=== PATIENT | male | born 1935 | race Caucasian/White ===

== ENCOUNTER 2021-03-19 11:02 | Inpatient (IN) ==
[2021-03-19] MEDS ORDERED: NS 0.9% 1000 ml BAG 1,000 ML IV ONE (13:32)
[2021-03-19 14:04] LABS: ABS Lymphocytes 0.2 10^3/ul (1.0-4.8); ABS Monocytes 1.3 10^3/ul (0-0.8); ABS Neutrophils 10.3 10^3/ul (1.5-7.7); Hematocrit 36 % (42-52); Hemoglobin 11.4 g/dL (14.0-18.0); Mean Corpuscular HGB Conc 32 g/dL (31-36); Mean Corpuscular Hemoglobin 26 pg (27-31); Mean Corpuscular Volume 81 fL (80-94); Platelet Count 311 10^3/uL (150-450); Red Blood Count 4.41 10^6 /uL (4.18-5.48); Red Cell Distribution Width 18 % (10-15); White Blood Count 11.8 10^3/uL (3.5-10.8)
[2021-03-19 14:31] LABS: ALT 6 U/L (7-52); AST 33 U/L (13-39); Albumin 3.1 g/dL (3.2-5.2); Albumin/Globulin Ratio 0.9 (1-3); Alkaline Phosphatase 61 U/L (35-149); Anion Gap 9 mmol/L (2-11); Blood Urea Nitrogen 21 mg/dL (6-24); CO2 Carbon Dioxide 24 mmol/L (22-32); Calcium 8.4 mg/dL (8.6-10.3); Chloride 104 mmol/L (101-111); EGFR African American 90.3 (>60); EGFR Non-African American 74.6 (>60); Globulin 3.4 g/dL (2-4); Glucose 90 mg/dL (70-100); Potassium 3.6 mmol/L (3.5-5.0); Sodium 137 mmol/L (135-145); Total Protein 6.5 g/dL (6.4-8.9)
[2021-03-19 14:37] LABS: Troponin I 0.14 ng/mL (<0.03)
[2021-03-19 15:01] LABS: TSH Ultra Thyroid Stim Horm 3.95 mcIU/mL (0.34-5.60)
[2021-03-19] MEDS ORDERED: Iohexol 350 (CONTRAST) 500 ML MDV IV ONE (15:31)
[2021-03-19 17:01] LABS: Urine Appearance Cloudy; Urine Bacteria Absent (Absent); Urine Bilirubin Negative (Negative); Urine Blood 1+ (Negative); Urine Color Yellow; Urine Glucose Negative (Negative); Urine Ketones 1+ (Negative); Urine Nitrite Positive (Negative); Urine Protein Negative (Negative); Urine Red Blood Cell 2+(6-10/hpf) (Absent); Urine Squamous Epithelial Cell Present (Absent); Urine Urobilinogen Negative (Negative); Urine White Blood Cell Absent (Absent)
[2021-03-19 17:26] LABS: Troponin I 0.13 ng/mL (<0.03)
[2021-03-19] MEDS ORDERED: NS 0.9% 1000 ml BAG 1,000 ML IV SCH (20:30)
[2021-03-19 20:47] LABS: Troponin I 0.15 ng/mL (<0.03)
[2021-03-19 22:33] LABS: Influenza A Molecular Negative (Negative); Influenza B Molecular Negative (Negative)
[2021-03-19] MEDS: Enoxaparin 40 MG/0.4 ML SYR SUBCUT SCH (22:37)
[2021-03-20 00:55] LABS: Troponin I 0.18 ng/mL (<0.03)
[2021-03-20 03:59] LABS: ABS Eosinophils 0.1 10^3/ul (0-0.6); ABS Lymphocytes 0.2 10^3/ul (1.0-4.8); ABS Monocytes 1.4 10^3/ul (0-0.8); ABS Neutrophils 8.1 10^3/ul (1.5-7.7); Eosinophil % 0.6 %; Hematocrit 33 % (42-52); Hemoglobin 10.8 g/dL (14.0-18.0); Lymphocyte % 2.2 %; Mean Corpuscular HGB Conc 32 g/dL (31-36); Mean Corpuscular Hemoglobin 26 pg (27-31); Mean Corpuscular Volume 81 fL (80-94); Mean Platelet Volume 8.2 fL (7.4-10.4); Platelet Count 264 10^3/uL (150-450); Red Blood Count 4.11 10^6 /uL (4.18-5.48); Red Cell Distribution Width 18 % (10-15); White Blood Count 9.8 10^3/uL (3.5-10.8)
[2021-03-20 04:12] LABS: Albumin 2.6 g/dL (3.2-5.2); Albumin/Globulin Ratio 0.9 (1-3); C Reactive Protein 127.26 mg/L (<8.01); Calcium 7.7 mg/dL (8.6-10.3); EGFR African American 108.3 (>60); EGFR Non-African American 89.5 (>60); Potassium 3.6 mmol/L (3.5-5.0); Total Bilirubin 0.6 mg/dL (0.2-1.0); Total Protein 5.6 g/dL (6.4-8.9)
[2021-03-20 04:20] LABS: Troponin I 0.18 ng/mL (<0.03)
[2021-03-20] MEDS ORDERED: Iohexol 350 (CONTRAST) 500 ML MDV IV ONE (05:04)
[2021-03-20] MEDS ORDERED: NS 0.9% 1000 ml BAG 1,000 ML IV SCH (05:53)
[2021-03-20 06:32] LABS: Folate 9.39 ng/mL (5.90-24.80)
[2021-03-20 06:36] LABS: Vitamin D Total 25(OH) 14.6 ng/mL (20-50)
[2021-03-20] MEDS ORDERED: Cyanocobalamin INJ 1,000 MCG/ML VIAL 1 ML VIAL IM ONE (07:31)
[2021-03-20] MEDS: cefTRIAXone 1 gm/50 mL NS BAG 1 GM/50 ML BAG IVPB SCH (08:49)
[2021-03-20] MEDS: Cholecalciferol (VIT D3) 50,000 UNIT CAP (NF) PO SCH (08:56)
[2021-03-20] MEDS ORDERED: Cholecalciferol (VIT D3) 1,000 unit TAB PO SCH (09:00)
[2021-03-20] MEDS: Carbidopa/Levodop 25/100 MG TAB PO SCH ×2 (11:10→17:11)
[2021-03-20] MEDS: NS 0.9% 1000 ml BAG 1,000 ML IV SCH (16:11)
[2021-03-20] MEDS: Enoxaparin 40 MG/0.4 ML SYR SUBCUT SCH (20:13)
[2021-03-21] MEDS: NS 0.9% 1000 ml BAG 1,000 ML IV SCH ×3 (02:16→22:57)
[2021-03-21 06:45] LABS: ABS Eosinophils 0.1 10^3/ul (0-0.6); ABS Lymphocytes 0.3 10^3/ul (1.0-4.8); ABS Monocytes 0.9 10^3/ul (0-0.8); ABS Neutrophils 6.3 10^3/ul (1.5-7.7); Eosinophil % 1.5 %; Hematocrit 30 % (42-52); Hemoglobin 9.9 g/dL (14.0-18.0); Lymphocyte % 3.7 %; Mean Corpuscular HGB Conc 33 g/dL (31-36); Mean Corpuscular Hemoglobin 26 pg (27-31); Mean Corpuscular Volume 80 fL (80-94); Mean Platelet Volume 8.3 fL (7.4-10.4); Platelet Count 237 10^3/uL (150-450); Red Blood Count 3.75 10^6 /uL (4.18-5.48); Red Cell Distribution Width 18 % (10-15); White Blood Count 7.7 10^3/uL (3.5-10.8)
[2021-03-21 07:00] LABS: Albumin 2.5 g/dL (3.2-5.2); Albumin/Globulin Ratio 0.9 (1-3); Calcium 7.5 mg/dL (8.6-10.3); EGFR African American 105.3 (>60); EGFR Non-African American 87.1 (>60); Globulin 2.8 g/dL (2-4); Potassium 3.6 mmol/L (3.5-5.0); Total Bilirubin 0.4 mg/dL (0.2-1.0); Total Protein 5.3 g/dL (6.4-8.9)
[2021-03-21] MEDS: cefTRIAXone 1 gm/50 mL NS BAG 1 GM/50 ML BAG IVPB SCH (08:02)
[2021-03-21] MEDS: Carbidopa/Levodop 25/100 MG TAB PO SCH ×3 (08:02→17:14)
[2021-03-21] MEDS: Enoxaparin 40 MG/0.4 ML SYR SUBCUT SCH (19:47)
[2021-03-22] MEDS: cefTRIAXone 1 gm/50 mL NS BAG 1 GM/50 ML BAG IVPB SCH (07:40)
[2021-03-22] MEDS: Carbidopa/Levodop 25/100 MG TAB PO SCH ×3 (07:40→16:57)
[2021-03-22] MEDS: NS 0.9% 1000 ml BAG 1,000 ML IV SCH (10:33)
[2021-03-22] MEDS: Enoxaparin 40 MG/0.4 ML SYR SUBCUT SCH (20:32)
[2021-03-22] MEDS: Magnesium Hydroxide LIQ 30 ML UDC PO PRN (20:32)
[2021-03-23 06:05] LABS: ABS Lymphocytes 0.3 10^3/ul (1.0-4.8); ABS Monocytes 1.3 10^3/ul (0-0.8); ABS Neutrophils 9.2 10^3/ul (1.5-7.7); Eosinophil % 0.3 %; Hematocrit 31 % (42-52); Hemoglobin 9.9 g/dL (14.0-18.0); Lymphocyte % 2.4 %; Mean Corpuscular HGB Conc 32 g/dL (31-36); Mean Corpuscular Hemoglobin 26 pg (27-31); Mean Corpuscular Volume 81 fL (80-94); Mean Platelet Volume 8.1 fL (7.4-10.4); Platelet Count 277 10^3/uL (150-450); Red Blood Count 3.84 10^6 /uL (4.18-5.48); Red Cell Distribution Width 18 % (10-15); White Blood Count 10.8 10^3/uL (3.5-10.8)
[2021-03-23 06:22] LABS: Albumin 2.6 g/dL (3.2-5.2); Albumin/Globulin Ratio 0.9 (1-3); Calcium 8.1 mg/dL (8.6-10.3); EGFR African American 106.8 (>60); EGFR Non-African American 88.3 (>60); Magnesium 2.1 mg/dL (1.9-2.7); Potassium 3.8 mmol/L (3.5-5.0); Total Bilirubin 0.3 mg/dL (0.2-1.0); Total Protein 5.6 g/dL (6.4-8.9)
[2021-03-23] MEDS ORDERED: Furosemide 20 mg/2 ml IV VIAL IV SLOW PU ONE (08:41)
[2021-03-23] MEDS: Carbidopa/Levodop 25/100 MG TAB PO SCH ×3 (08:47→17:37)
[2021-03-23] MEDS: cefTRIAXone 1 gm/50 mL NS BAG 1 GM/50 ML BAG IVPB SCH (08:47)
[2021-03-23] MEDS ORDERED: Furosemide 20 mg/2 ml IV VIAL ONE (08:57)
[2021-03-23] MEDS: Enoxaparin 40 MG/0.4 ML SYR SUBCUT SCH (22:08)
[2021-03-24] MEDS ORDERED: Furosemide 20 mg/2 ml IV VIAL IV SLOW PU ONE ×2 (07:12→08:34)
[2021-03-24] MEDS: Carbidopa/Levodop 25/100 MG TAB PO SCH ×3 (07:26→16:37)
[2021-03-24] MEDS: cefTRIAXone 1 gm/50 mL NS BAG 1 GM/50 ML BAG IVPB SCH (07:28)
[2021-03-24 09:06] LABS: ABS Basophils 0.1 10^3/ul (0-0.2); ABS Eosinophils 0.1 10^3/ul (0-0.6); ABS Lymphocytes 0.3 10^3/ul (1.0-4.8); ABS Monocytes 1.3 10^3/ul (0-0.8); ABS Neutrophils 5.9 10^3/ul (1.5-7.7); Eosinophil % 1.8 %; Hematocrit 35 % (42-52); Hemoglobin 11.4 g/dL (14.0-18.0); Lymphocyte % 4.5 %; Mean Corpuscular HGB Conc 33 g/dL (31-36); Mean Corpuscular Hemoglobin 26 pg (27-31); Mean Corpuscular Volume 79 fL (80-94); Mean Platelet Volume 8.1 fL (7.4-10.4); Platelet Count 314 10^3/uL (150-450); Red Blood Count 4.43 10^6 /uL (4.18-5.48); Red Cell Distribution Width 18 % (10-15); White Blood Count 7.8 10^3/uL (3.5-10.8)
[2021-03-24 09:30] LABS: Calcium 8.5 mg/dL (8.6-10.3); EGFR African American 98.5 (>60); EGFR Non-African American 81.4 (>60); Magnesium 1.9 mg/dL (1.9-2.7); Potassium 3.6 mmol/L (3.5-5.0)
[2021-03-24] MEDS: Enoxaparin 40 MG/0.4 ML SYR SUBCUT SCH (19:39)
[2021-03-25] MEDS: Carbidopa/Levodop 25/100 MG TAB PO SCH ×3 (07:29→16:43)
[2021-03-25] MEDS: Enoxaparin 40 MG/0.4 ML SYR SUBCUT SCH (20:11)
[2021-03-26 00:17] LABS: Albumin 1.9 g/dL (3.4-4.7); Albumin/Globulin Ratio 0.66; Gamma Globulin 1.1 g/dL (0.6-1.6); Total Protein(PEP) 4.8 g/dL (6.3 - 7.9)
[2021-03-26] MEDS: Carbidopa/Levodop 25/100 MG TAB PO SCH ×4 (08:49→18:34)
[2021-03-26] MEDS: Enoxaparin 40 MG/0.4 ML SYR SUBCUT SCH (20:42)
[2021-03-26] MEDS: Magnesium Hydroxide LIQ 30 ML UDC PO PRN (20:43)
[2021-03-27] MEDS: Carbidopa/Levodop 25/100 MG TAB PO SCH ×3 (08:46→16:10)
[2021-03-27] MEDS: Cholecalciferol (VIT D3) 50,000 UNIT CAP (NF) PO SCH (08:48)
[2021-03-27 11:12] LABS: Flag, M-protein Isotype Positive (Negative)
[2021-03-27] MEDS: Enoxaparin 40 MG/0.4 ML SYR SUBCUT SCH (20:10)
[2021-03-27 22:51] LABS: Calcium 8.1 mg/dL (8.6-10.3); EGFR African American 121.9 (>60); EGFR Non-African American 100.8 (>60); Magnesium 2.1 mg/dL (1.9-2.7)
[2021-03-28 08:51] LABS: % Iron Saturation 6 % (15-55); Iron < 20 ug/dL (50-212); Total Iron Binding Capacity 335 mcg/dL (250-450); Transferrin 239 mg/dL (203-362); Unsaturated Iron Binding < 320 ug/dL
[2021-03-28 09:11] LABS: Ferritin 23.4 ng/mL (24-336)
[2021-03-28] MEDS: Carbidopa/Levodop 25/100 MG TAB PO SCH ×3 (09:16→17:58)
[2021-03-28 10:24] LABS: PSA Screening Total < 0.008 ng/mL (0-4.000)
[2021-03-28] MEDS ORDERED: Iron Sucrose 200 MG in NS 0.9% 100 ml BAG 100 ML IVPB ONE (17:22)
[2021-03-28] MEDS: Enoxaparin 40 MG/0.4 ML SYR SUBCUT SCH (20:34)
[2021-03-29] MEDS: Carbidopa/Levodop 25/100 MG TAB PO SCH (10:15)
[2021-03-29 14:09] VITALS: BP 135/61
[2021-03-30 11:41] LABS: Kappa Free Light Chain 3.41 mg/dL; Lambda Free Light Chain, S 2.79 mg/dL
== END 2021-03-29 13:30 | disposition home health service (06) | DRG 872 ==
LOC: ED 11:02 → MEDTELE 19:56 → SUATTDRO 19:56 → MEDTELE 21:55
PROVIDERS: ADMIT Student in an Organized Health Care Education/Training Program; ATTEND Hospitalist

== ENCOUNTER 2022-03-03 15:24 | Inpatient (IN) ==
[2022-03-03 17:56] LABS: ABS Lymphocytes 0.4 10^3/ul (1.0-4.8); ABS Neutrophils 11.8 10^3/ul (1.5-7.7); Eosinophil % 0.3 %; Hematocrit 47 % (42-52); Hemoglobin 15.2 g/dL (14.0-18.0); Lymphocyte % 2.8 %; Mean Corpuscular HGB Conc 33 g/dL (31-36); Mean Corpuscular Hemoglobin 30 pg (27-31); Mean Corpuscular Volume 91 fL (80-94); Mean Platelet Volume 8.7 fL (7.4-10.4); Nucleated Red Blood Cells % 0.1; Platelet Count 178 10^3/uL (150-450); Red Blood Count 5.13 10^6 /uL (4.18-5.48); Red Cell Distribution Width 16 % (10-15); White Blood Count 13.2 10^3/uL (3.5-10.8)
[2022-03-03 18:08] LABS: Activated Partial Thrombo Time 34.2 seconds (26.0-38.0); INR 1.29 (0.89-1.11)
[2022-03-03 18:35] LABS: Albumin 4.6 g/dL (3.2-5.2); Albumin/Globulin Ratio 1.8 (1-3); Calcium 9.9 mg/dL (8.6-10.3); Globulin 2.6 g/dL (2-4); Potassium 4.3 mmol/L (3.5-5.0); Total Bilirubin 1.3 mg/dL (0.2-1.0); Total Protein 7.2 g/dL (6.4-8.9); eGFR CKD-EPI 65.8 (>60)
[2022-03-03 19:36] LABS: High Sensitivity Troponin 1 Hr 51 pg/mL (<20)
[2022-03-03] MEDS ORDERED: Lactated Ringers 1000 ml BAG 1,000 ML IV SCH (21:00)
[2022-03-03] MEDS: Carbidopa/Levodop 25/100 MG TAB PO SCH (22:09)
[2022-03-03] MEDS ORDERED: Morphine 2 MG/ML SYRINGE IV PRN (22:44)
[2022-03-04 05:55] LABS: ABS Lymphocytes 0.3 10^3/ul (1.0-4.8); ABS Neutrophils 8.3 10^3/ul (1.5-7.7); Eosinophil % 0.1 %; Hematocrit 39 % (42-52); Hemoglobin 13.3 g/dL (14.0-18.0); Lymphocyte % 2.8 %; Mean Corpuscular HGB Conc 34 g/dL (31-36); Mean Corpuscular Hemoglobin 31 pg (27-31); Mean Corpuscular Volume 90 fL (80-94); Mean Platelet Volume 8.6 fL (7.4-10.4); Platelet Count 163 10^3/uL (150-450); Red Blood Count 4.36 10^6 /uL (4.18-5.48); Red Cell Distribution Width 16 % (10-15); White Blood Count 9.7 10^3/uL (3.5-10.8)
[2022-03-04 06:36] LABS: Blood Urea Nitrogen 17 mg/dL (6-24); CO2 Carbon Dioxide 20 mmol/L (22-32); Glucose 67 mg/dL (70-100); Sodium 142 mmol/L (135-145); eGFR CKD-EPI 95.6 (>60)
[2022-03-04 07:00] LABS: Calcium 6.2 mg/dL (8.6-10.3)
[2022-03-04 07:02] LABS: Chloride 112 mmol/L (101-111)
[2022-03-04 07:03] LABS: Anion Gap 10 mmol/L (2-11)
[2022-03-04] MEDS: Senna TAB 8.6 mg TAB PO SCH ×3 (09:42→22:31)
[2022-03-04] MEDS: Carbidopa/Levodop 25/100 MG TAB PO SCH ×3 (09:42→22:28)
[2022-03-05] MEDS: Lactated Ringers 1000 ml BAG 1,000 ML IV SCH ×2 (05:31→21:34)
[2022-03-05] MEDS ORDERED: Buffered Lidocaine 1% SYRIN 1 ml INTRADERM ONE (06:00)
[2022-03-05 06:48] LABS: INR 1.11 (0.89-1.11)
[2022-03-05 06:51] LABS: ABS Lymphocytes 0.2 10^3/ul (1.0-4.8); ABS Monocytes 1.3 10^3/ul (0-0.8); ABS Neutrophils 9.1 10^3/ul (1.5-7.7); Eosinophil % 0.2 %; Hematocrit 42 % (42-52); Hemoglobin 14.2 g/dL (14.0-18.0); Lymphocyte % 1.9 %; Mean Corpuscular HGB Conc 34 g/dL (31-36); Mean Corpuscular Hemoglobin 31 pg (27-31); Mean Corpuscular Volume 90 fL (80-94); Mean Platelet Volume 8.6 fL (7.4-10.4); Platelet Count 156 10^3/uL (150-450); Red Blood Count 4.66 10^6 /uL (4.18-5.48); Red Cell Distribution Width 15 % (10-15); White Blood Count 10.7 10^3/uL (3.5-10.8)
[2022-03-05 08:08] LABS: Calcium 8.9 mg/dL (8.6-10.3); Magnesium 1.8 mg/dL (1.9-2.7); eGFR CKD-EPI 80.5 (>60)
[2022-03-05] MEDS: Carbidopa/Levodop 25/100 MG TAB PO SCH ×3 (08:09→21:35)
[2022-03-05] MEDS: Senna TAB 8.6 mg TAB PO SCH ×2 (08:09→21:35)
[2022-03-05] MEDS ORDERED: Magnesium Sulfate IV 3 GM in NS 0.9% 100 ml BAG 100 ML IVPB ONE (08:50)
[2022-03-05] MEDS ORDERED: Propofol 10 MG/ML 20 ML BTL ONE (11:26)
[2022-03-05] MEDS ORDERED: Lidocaine 2% PF 5 ML VIAL ONE (11:26)
[2022-03-05] MEDS ORDERED: fentaNYL 100 mcg/2 ml 50 MCG/ML VIAL ONE (11:26)
[2022-03-05] MEDS ORDERED: Rocuronium 50 mg VIAL 10 mg/ml 5 ml VIAL (50 mg) ONE (11:26)
[2022-03-05] MEDS ORDERED: Phenylephrine IV 10 MG/ML 1 ml VIAL ONE (11:30)
[2022-03-05] MEDS ORDERED: Bupivacaine 0.5% SDV PF 30ML VIAL ONE (13:36)
[2022-03-05] MEDS ORDERED: Naloxone 0.4 mg VIAL 0.4 mg/ml 1 ml VIAL IV PRN (13:42)
[2022-03-05] MEDS ORDERED: Ondansetron 4 mg VIAL 2 MG/ML 2 ml VIAL IV PRN (13:42)
[2022-03-05] MEDS ORDERED: fentaNYL 100 mcg/2 ml 50 MCG/ML VIAL IV PRN (13:42)
[2022-03-05] MEDS ORDERED: ceFAZolin 1 GM ADVAN 1 GM ADDV.VIAL IVPB ONE (13:58)
[2022-03-05] MEDS ORDERED: Acetaminophen IV 1 GM/100ML 1,000 MG/100 ML BAG IV ONE (14:29)
[2022-03-05] MEDS ORDERED: Ondansetron 4 mg VIAL 2 MG/ML 2 ml VIAL ONE (14:40)
[2022-03-05] MEDS ORDERED: Dexamethasone IV 4 MG/ML VIAL 1 ml VIAL ONE (14:40)
[2022-03-05] MEDS ORDERED: Magnesium Sulfate IV 0.5 GM/ML 2 ml VIAL (1 gm) ONE (14:42)
[2022-03-05] MEDS: ceFAZolin 1 GM X 3 DOSES POST-OP Q8H (AddVan) IVPB SCH (21:36)
[2022-03-06 05:43] LABS: Hematocrit 43 % (42-52); Hemoglobin 13.9 g/dL (14.0-18.0); Mean Corpuscular HGB Conc 33 g/dL (31-36); Mean Corpuscular Hemoglobin 30 pg (27-31); Mean Corpuscular Volume 91 fL (80-94); Mean Platelet Volume 8.8 fL (7.4-10.4); Platelet Count 150 10^3/uL (150-450); Red Blood Count 4.71 10^6 /uL (4.18-5.48); Red Cell Distribution Width 16 % (10-15); White Blood Count 12.1 10^3/uL (3.5-10.8)
[2022-03-06] MEDS: ceFAZolin 1 GM X 3 DOSES POST-OP Q8H (AddVan) IVPB SCH ×2 (06:04→13:50)
[2022-03-06 06:31] LABS: Calcium 8.4 mg/dL (8.6-10.3); Magnesium 2.3 mg/dL (1.9-2.7); Potassium 4.5 mmol/L (3.5-5.0)
[2022-03-06 07:06] LABS: ABS Lymphocytes 0.2 10^3/ul (1.0-4.8); ABS Monocytes 1.8 10^3/ul (0-0.8); ABS Neutrophils 10.1 10^3/ul (1.5-7.7); Eosinophil % 0.1 %; Lymphocyte % 1.7 %; Nucleated Red Blood Cells % 0.1
[2022-03-06] MEDS ORDERED: Enoxaparin 40 MG/0.4 ML SYR SUBCUT SCH (09:00)
[2022-03-06] MEDS: Senna TAB 8.6 mg TAB PO SCH ×2 (09:40→21:10)
[2022-03-06] MEDS: Carbidopa/Levodop 25/100 MG TAB PO SCH ×3 (09:41→21:09)
[2022-03-07 05:19] LABS: Hematocrit 37 % (42-52); Hemoglobin 12.2 g/dL (14.0-18.0); Mean Corpuscular HGB Conc 33 g/dL (31-36); Mean Corpuscular Hemoglobin 30 pg (27-31); Mean Corpuscular Volume 91 fL (80-94); Mean Platelet Volume 8.7 fL (7.4-10.4); Platelet Count 141 10^3/uL (150-450); Red Blood Count 4.03 10^6 /uL (4.18-5.48); Red Cell Distribution Width 16 % (10-15); White Blood Count 10.1 10^3/uL (3.5-10.8)
[2022-03-07 05:53] LABS: Calcium 7.8 mg/dL (8.6-10.3); Magnesium 2.1 mg/dL (1.9-2.7); eGFR CKD-EPI 85.2 (>60)
[2022-03-07] MEDS: Senna TAB 8.6 mg TAB PO SCH ×2 (08:37→20:44)
[2022-03-07] MEDS: Carbidopa/Levodop 25/100 MG TAB PO SCH ×3 (08:37→20:44)
[2022-03-07] MEDS: Polyethylene Glycol 3350 17 GM PACKET PO PRN (20:44)
[2022-03-08 05:14] LABS: Hematocrit 36 % (42-52); Hemoglobin 11.9 g/dL (14.0-18.0); Mean Corpuscular HGB Conc 33 g/dL (31-36); Mean Corpuscular Hemoglobin 30 pg (27-31); Mean Corpuscular Volume 90 fL (80-94); Mean Platelet Volume 8.4 fL (7.4-10.4); Platelet Count 159 10^3/uL (150-450); Red Blood Count 3.95 10^6 /uL (4.18-5.48); Red Cell Distribution Width 16 % (10-15); White Blood Count 7.9 10^3/uL (3.5-10.8)
[2022-03-08 05:57] LABS: Calcium 7.8 mg/dL (8.6-10.3); Potassium 3.7 mmol/L (3.5-5.0)
[2022-03-08 06:03] LABS: eGFR CKD-EPI 84.9 (>60)
[2022-03-08 08:40] LABS: Albumin 2.9 g/dL (3.2-5.2); Albumin/Globulin Ratio 1.4 (1-3); Globulin 2.1 g/dL (2-4); Total Bilirubin 0.9 mg/dL (0.2-1.0)
[2022-03-08] MEDS: Senna TAB 8.6 mg TAB PO SCH ×2 (11:37→22:09)
[2022-03-08] MEDS: Carbidopa/Levodop 25/100 MG TAB PO SCH ×3 (11:37→22:09)
[2022-03-08] MEDS: Polyethylene Glycol 3350 17 GM PACKET PO PRN (11:38)
[2022-03-09] MEDS: Carbidopa/Levodop 25/100 MG TAB PO SCH ×2 (10:32→14:42)
[2022-03-09] MEDS: Senna TAB 8.6 mg TAB PO SCH ×2 (10:32→23:59)
[2022-03-09] MEDS ORDERED: KCL 10 MEQ/50 ML IVPREMIX 10 MEQ/50 ML BAG IV SCH (12:00)
[2022-03-09 13:00] LABS: Calcium 8.3 mg/dL (8.6-10.3); Magnesium 2.1 mg/dL (1.9-2.7); eGFR CKD-EPI 88.1 (>60)
[2022-03-10] MEDS: Carbidopa/Levodop 25/100 MG TAB PO SCH ×4 (09:38→22:13)
[2022-03-10] MEDS: Senna TAB 8.6 mg TAB PO SCH ×2 (09:40→22:15)
[2022-03-11] MEDS: Carbidopa/Levodop 25/100 MG TAB PO SCH (10:33)
[2022-03-11] MEDS: Senna TAB 8.6 mg TAB PO SCH (10:33)
[2022-03-11 11:46] VITALS: BP 122/68
[2022-03-11 12:10] LABS: Rapid COVID-19 Molecular Undetected (Undetected)
== END 2022-03-11 13:15 | DRG 522 ==
LOC: ED 15:24 → MERGE 20:51 → EDHOLD 20:51 → SUATTDRO 20:51 → EDHOLD 03-04 09:39 → SSU 03-04 10:10
PROVIDERS: ADMIT Hospitalist; ATTEND Student in an Organized Health Care Education/Training Program

== ENCOUNTER 2022-08-03 15:09 | Inpatient (IN) ==
[2022-08-03] MEDS ORDERED: NS 0.9% 1000 ml BAG 2,000 ML IV ONE (18:23)
[2022-08-03] MEDS ORDERED: Morphine 4 MG/ML VIAL (1 ml) IV ONE (18:24)
[2022-08-03 19:06] LABS: ABS Lymphocytes 0.3 10^3/ul (1.0-4.8); ABS Monocytes 1.1 10^3/ul (0-0.8); ABS Neutrophils 8.5 10^3/ul (1.5-7.7); Hematocrit 47 % (42-52); Hemoglobin 15.4 g/dL (14.0-18.0); Lymphocyte % 2.9 %; Mean Corpuscular HGB Conc 33 g/dL (31-36); Mean Corpuscular Hemoglobin 28 pg (27-31); Mean Corpuscular Volume 85 fL (80-94); Nucleated Red Blood Cells % 0.1; Platelet Count 235 10^3/uL (150-450); Red Blood Count 5.52 10^6 /uL (4.18-5.48); Red Cell Distribution Width 17 % (10-15); White Blood Count 9.9 10^3/uL (3.5-10.8)
[2022-08-03 19:59] LABS: Albumin 3.7 g/dL (3.2-5.2); Albumin/Globulin Ratio 1.2 (1-3); C Reactive Protein 112.68 mg/L (<8.01); Calcium 8.8 mg/dL (8.6-10.3); Creatinine, Serum 1.28 mg/dL (0.67-1.17); Globulin 3.2 g/dL (2-4); Magnesium 2.3 mg/dL (1.9-2.7); Potassium 4.8 mmol/L (3.5-5.0); Total Protein 6.9 g/dL (6.4-8.9); eGFR CKD-EPI 54.5 (>60)
[2022-08-03 20:30] LABS: High Sensitivity Troponin 1 Hr 237 pg/mL (<20)
[2022-08-04] MEDS ORDERED: Morphine 4 MG/ML VIAL (1 ml) IV ONE (01:30)
[2022-08-04] MEDS ORDERED: NS 0.9% 1000 ml BAG 1,000 ML IV ONE ×2 (01:32→05:30)
[2022-08-04] MEDS ORDERED: LORazepam 2 mg VIAL 1 ml ONE (02:01)
[2022-08-04] MEDS ORDERED: Lorazepam PYXIS KEY PRN (02:15)
[2022-08-04] MEDS ORDERED: LORazepam 2 mg VIAL 1 ml IV PUSH ONE (02:15)
[2022-08-04] MEDS ORDERED: Acetaminophen IV 1 GM/100ML 1,000 MG/100 ML BAG IV SCH (04:15)
[2022-08-04] MEDS ORDERED: Acetaminophen IV 1 GM/100ML 1,000 MG/100 ML BAG IV ONE ×2 (04:16→05:00)
[2022-08-04 04:44] LABS: Hematocrit 46 % (42-52); Hemoglobin 15.1 g/dL (14.0-18.0); Mean Corpuscular HGB Conc 33 g/dL (31-36); Mean Corpuscular Hemoglobin 28 pg (27-31); Mean Corpuscular Volume 86 fL (80-94); Mean Platelet Volume 7.7 fL (7.4-10.4); Platelet Count 171 10^3/uL (150-450); Red Blood Count 5.32 10^6 /uL (4.18-5.48); Red Cell Distribution Width 16 % (10-15); White Blood Count 1.8 10^3/uL (3.5-10.8)
[2022-08-04] MEDS ORDERED: cefTRIAXone 1 gm/50 mL D5W 1 GM/50 ML BAG IV ONE (04:44)
[2022-08-04] MEDS ORDERED: Azithromycin 500 mg/250 ml NS 500 MG/250 ML BAG IVPB ONE (04:44)
[2022-08-04 05:23] LABS: Urine Appearance Cloudy; Urine Bacteria 1+ (Absent); Urine Bilirubin Negative (Negative); Urine Blood 3+ (Negative); Urine Glucose Negative (Negative); Urine Ketones Negative (Negative); Urine Nitrite Positive (Negative); Urine Protein 2+(100 mg/dL) (Negative); Urine Red Blood Cell 3+(>10/hpf) (Absent); Urine Specific Gravity 1.009 (1.002-1.030); Urine Squamous Epithelial Cell Present (Absent); Urine Urobilinogen Negative (Negative); Urine White Blood Cell 3+(>20/hpf) (Absent)
[2022-08-04 05:28] LABS: Urine Color Red
[2022-08-04] MEDS ORDERED: Norepinephrine 16MCG/ML BAGD5W 4,000 MCG/250 ML BAG IV ONE (05:36)
[2022-08-04] MEDS ORDERED: Iodixanol (CONTRAST) 320 MG/ML 100 ML SDV IV ONE (05:36)
[2022-08-04] MEDS: Norepinephrine 16MCG/ML BAGD5W 4,000 MCG/250 ML BAG IV SCH ×2 (05:42→14:36)
[2022-08-04] MEDS ORDERED: Piperacillin/Tazobac ADVAN 3.375 GM in NS 0.9% 100 ml BAG 100 ML IV ONE (05:54)
[2022-08-04] MEDS ORDERED: Norepinephrine 16MCG/ML BAG NS 4,000 MCG/250 ML BAG IV SCH (06:00)
[2022-08-04] MEDS ORDERED: Zosyn per Pharmacy NOTE FOLLOW UP SCH (06:00)
[2022-08-04] MEDS ORDERED: Senna TAB 8.6 mg TAB PO PRN (06:21)
[2022-08-04] MEDS ORDERED: Magnesium Hydroxide LIQ 30 ML UDC PO PRN (06:21)
[2022-08-04 08:54] LABS: ABS Lymphocytes 0.1 10^3/ul (1.0-4.8); ABS Neutrophils 9.3 10^3/ul (1.5-7.7); Hematocrit 38 % (42-52); Hemoglobin 12.2 g/dL (14.0-18.0); Lymphocyte % 0.8 %; Mean Corpuscular HGB Conc 33 g/dL (31-36); Mean Corpuscular Hemoglobin 28 pg (27-31); Mean Corpuscular Volume 87 fL (80-94); Mean Platelet Volume 7.9 fL (7.4-10.4); Platelet Count 124 10^3/uL (150-450); Red Blood Count 4.33 10^6 /uL (4.18-5.48); Red Cell Distribution Width 16 % (10-15); White Blood Count 9.4 10^3/uL (3.5-10.8)
[2022-08-04] MEDS: Lactated Ringers 1000 ml BAG 1,000 ML IV SCH ×4 (08:55→23:08)
[2022-08-04] MEDS ORDERED: Lactated Ringers 1000 ml BAG 1,000 ML IV ONE (09:26)
[2022-08-04 09:36] LABS: Phosphorus 1.8 mg/dL (2.5-5.0)
[2022-08-04] MEDS: Heparin 5000 UNITS/ML 1 mL VIAL SUBCUT SCH ×2 (10:41→21:00)
[2022-08-04 11:02] LABS: Albumin 2.6 g/dL (3.2-5.2); Albumin/Globulin Ratio 1.2 (1-3); Calcium 7.1 mg/dL (8.6-10.3); Creatinine, Serum 1.24 mg/dL (0.67-1.17); Globulin 2.1 g/dL (2-4); Potassium 3.7 mmol/L (3.5-5.0); Total Bilirubin 1.4 mg/dL (0.2-1.0); Total Protein 4.7 g/dL (6.4-8.9); eGFR CKD-EPI 56.6 (>60)
[2022-08-04] MEDS: Carbidopa/Levodop 25/100 MG TAB PO SCH ×3 (11:44→17:46)
[2022-08-04] MEDS: ZOSYN 3.375 GM Q8H per EXTENDED INFUSION IV SCH ×2 (12:42→20:59)
[2022-08-04] MEDS: Acetaminophen IV 1 GM/100ML 1,000 MG/100 ML BAG IV PRN (23:38)
[2022-08-04] MEDS ORDERED: Lactated Ringers 1000 ml BAG 1,000 ML IV SCH (23:48)
[2022-08-05] MEDS: ZOSYN 3.375 GM Q8H per EXTENDED INFUSION IV SCH (03:48)
[2022-08-05] MEDS: Azithromycin 500 mg/250 ml NS 500 MG/250 ML BAG IVPB SCH (03:51)
[2022-08-05 05:11] LABS: Hematocrit 37 % (42-52); Hemoglobin 11.9 g/dL (14.0-18.0); Mean Corpuscular HGB Conc 33 g/dL (31-36); Mean Corpuscular Hemoglobin 28 pg (27-31); Mean Corpuscular Volume 86 fL (80-94); Mean Platelet Volume 8.1 fL (7.4-10.4); Platelet Count 123 10^3/uL (150-450); Red Blood Count 4.26 10^6 /uL (4.18-5.48); Red Cell Distribution Width 17 % (10-15); White Blood Count 21.3 10^3/uL (3.5-10.8)
[2022-08-05 05:40] LABS: Magnesium 1.9 mg/dL (1.9-2.7); Phosphorus 3.3 mg/dL (2.5-5.0)
[2022-08-05 05:56] LABS: Albumin 2.4 g/dL (3.2-5.2); Anion Gap 8 mmol/L (2-11); CO2 Carbon Dioxide 21 mmol/L (22-32); Calcium 7.3 mg/dL (8.6-10.3); Chloride 110 mmol/L (101-111); Potassium 3.8 mmol/L (3.5-5.0); Sodium 139 mmol/L (135-145)
[2022-08-05] MEDS ORDERED: Azithromycin 500 mg/250 ml NS 500 MG/250 ML BAG IVPB SCH (06:00)
[2022-08-05 06:02] LABS: ALT 11 U/L (7-52); AST 38 U/L (13-39); Albumin/Globulin Ratio 1.1 (1-3); Alkaline Phosphatase 84 U/L (35-149); Blood Urea Nitrogen 32 mg/dL (6-24); Globulin 2.2 g/dL (2-4); Glucose 57 mg/dL (70-100); Total Protein 4.6 g/dL (6.4-8.9); eGFR CKD-EPI 65.4 (>60)
[2022-08-05] MEDS ORDERED: Magnesium Sulfate IV 1GM/100ML 1 GM/100 ML BAG IV ONE (06:22)
[2022-08-05] MEDS ORDERED: Dextrose 50% Syringe 50 ml 25 GM/50 ML SYRINGE IV PUSH PRN (06:51)
[2022-08-05 07:51] LABS: Burr Cells 3+
[2022-08-05 07:53] LABS: ABS Lymphocytes 0.4 10^3/ul (1.0-4.8); ABS Monocytes 1.6 10^3/ul (0-0.8); ABS Neutrophils 19.3 10^3/ul (1.5-7.7); Acanthocytes 1+; Anisocytosis 1+; Eosinophil % 0.2 %; Lymphocyte % 1.8 %
[2022-08-05] MEDS ORDERED: Lactated Ringers 1000 ml BAG 1,000 ML IV ONE (08:51)
[2022-08-05] MEDS: Acetaminophen IV 1 GM/100ML 1,000 MG/100 ML BAG IV PRN ×2 (08:56→20:36)
[2022-08-05] MEDS: Heparin 5000 UNITS/ML 1 mL VIAL SUBCUT SCH ×2 (09:28→20:36)
[2022-08-05 10:04] LABS: Corrected Retic Count 0.3 % (0.5-1.5); Hematocrit for Retic CNT 38 % (42-52); Immature Retic Fraction 0.26
[2022-08-05] MEDS: Carbidopa/Levodop 25/100 MG TAB PO SCH ×3 (10:05→18:27)
[2022-08-05 10:08] LABS: RBC Retic Count 4.41 10^6/uL (4.18-5.48)
[2022-08-05] MEDS ORDERED: Lactated Ringers 1000 ml BAG 1,000 ML IV SCH (10:16)
[2022-08-05 12:17] LABS: Ferritin 965.5 ng/mL (24-336)
[2022-08-05 12:32] LABS: Total Iron Binding Capacity 141 mcg/dL (250-450); Transferrin 101 mg/dL (203-362)
[2022-08-05 12:37] LABS: % Iron Saturation 14 % (15-55); Iron < 20 ug/dL (50-212); Unsaturated Iron Binding 121 ug/dL
[2022-08-05] MEDS: cefTRIAXone 2 gm/50 mL D5W 2 GM/50 ML BAG IV SCH (12:44)
[2022-08-05] MEDS ORDERED: Metoprolol Tartrate 5 mg VIAL 5 ml VIAL (1 mg/ml) IV PRN (15:03)
[2022-08-05] MEDS ORDERED: D5W 1000 ml BAG 1,000 ML IV SCH (23:45)
[2022-08-06] MEDS: Azithromycin 500 mg/250 ml NS 500 MG/250 ML BAG IVPB SCH (04:21)
[2022-08-06 05:12] LABS: Hematocrit 38 % (42-52); Hemoglobin 12.5 g/dL (14.0-18.0); Mean Corpuscular HGB Conc 33 g/dL (31-36); Mean Corpuscular Hemoglobin 28 pg (27-31); Mean Corpuscular Volume 84 fL (80-94); Mean Platelet Volume 8.4 fL (7.4-10.4); Platelet Count 107 10^3/uL (150-450); Red Blood Count 4.52 10^6 /uL (4.18-5.48); Red Cell Distribution Width 16 % (10-15); White Blood Count 15.5 10^3/uL (3.5-10.8)
[2022-08-06 05:52] LABS: Albumin 2.4 g/dL (3.2-5.2); Calcium 7.5 mg/dL (8.6-10.3); Creatinine, Serum 0.95 mg/dL (0.67-1.17); Globulin 2.3 g/dL (2-4); Magnesium 2.1 mg/dL (1.9-2.7); Potassium 3.2 mmol/L (3.5-5.0); Total Bilirubin 0.8 mg/dL (0.2-1.0); Total Protein 4.7 g/dL (6.4-8.9)
[2022-08-06] MEDS: Carbidopa/Levodop 25/100 MG TAB PO SCH ×3 (08:15→17:12)
[2022-08-06] MEDS: Heparin 5000 UNITS/ML 1 mL VIAL SUBCUT SCH ×2 (08:21→20:29)
[2022-08-06] MEDS: KCL 20 MEQ/100 ML IVPREMIX 20 MEQ/100 ML BAG IV SCH ×2 (08:21→10:00)
[2022-08-06] MEDS: D5W 1000 ml BAG 1,000 ML IV SCH ×2 (08:59→14:23)
[2022-08-06] MEDS: cefTRIAXone 2 gm/50 mL D5W 2 GM/50 ML BAG IV SCH (11:12)
[2022-08-07] MEDS: Azithromycin 500 mg/250 ml NS 500 MG/250 ML BAG IVPB SCH (04:12)
[2022-08-07 07:40] LABS: Hematocrit 37 % (42-52); Hemoglobin 12.3 g/dL (14.0-18.0); Mean Corpuscular HGB Conc 33 g/dL (31-36); Mean Corpuscular Hemoglobin 28 pg (27-31); Mean Corpuscular Volume 84 fL (80-94); Mean Platelet Volume 8.6 fL (7.4-10.4); Platelet Count 108 10^3/uL (150-450); Red Blood Count 4.41 10^6 /uL (4.18-5.48); Red Cell Distribution Width 16 % (10-15); White Blood Count 12.3 10^3/uL (3.5-10.8)
[2022-08-07 08:04] LABS: Calcium 7.6 mg/dL (8.6-10.3); Creatinine, Serum 0.83 mg/dL (0.67-1.17); Potassium 3.8 mmol/L (3.5-5.0); eGFR CKD-EPI 85.2 (>60)
[2022-08-07 10:20] LABS: ABS Lymphocytes 0.4 10^3/ul (1.0-4.8); ABS Monocytes 0.7 10^3/ul (0-0.8); ABS Neutrophils 11.2 10^3/ul (1.5-7.7); Eosinophil % 0.2 %; Lymphocyte % 3.4 %
[2022-08-07] MEDS: Carbidopa/Levodop 25/100 MG TAB PO SCH ×3 (10:24→17:55)
[2022-08-07] MEDS: Heparin 5000 UNITS/ML 1 mL VIAL SUBCUT SCH ×2 (10:24→20:24)
[2022-08-07] MEDS: cefTRIAXone 2 gm/50 mL D5W 2 GM/50 ML BAG IV SCH (12:43)
[2022-08-08 06:52] LABS: Calcium 7.7 mg/dL (8.6-10.3); Creatinine, Serum 0.75 mg/dL (0.67-1.17); Magnesium 1.9 mg/dL (1.9-2.7); Potassium 3.9 mmol/L (3.5-5.0); eGFR CKD-EPI 87.9 (>60)
[2022-08-08] MEDS ORDERED: Magnesium Sulfate IV 1GM/100ML 1 GM/100 ML BAG IV ONE (07:07)
[2022-08-08] MEDS ORDERED: Potassium Chlor 10 meq TAB PO ONE (07:07)
[2022-08-08 08:04] LABS: ABS Eosinophils 0.1 10^3/ul (0-0.6); ABS Lymphocytes 0.5 10^3/ul (1.0-4.8); ABS Monocytes 0.3 10^3/ul (0-0.8); ABS Neutrophils 7.5 10^3/ul (1.5-7.7); Eosinophil % 0.9 %; Hematocrit 36 % (42-52); Hemoglobin 11.7 g/dL (14.0-18.0); Lymphocyte % 5.8 %; Mean Corpuscular HGB Conc 33 g/dL (31-36); Mean Corpuscular Hemoglobin 27 pg (27-31); Mean Corpuscular Volume 84 fL (80-94); Mean Platelet Volume 8.8 fL (7.4-10.4); Nucleated Red Blood Cells % 0.1; Platelet Count 130 10^3/uL (150-450); Red Blood Count 4.27 10^6 /uL (4.18-5.48); Red Cell Distribution Width 16 % (10-15); White Blood Count 8.5 10^3/uL (3.5-10.8)
[2022-08-08] MEDS: Carbidopa/Levodop 25/100 MG TAB PO SCH ×3 (08:06→17:29)
[2022-08-08] MEDS: Heparin 5000 UNITS/ML 1 mL VIAL SUBCUT SCH ×2 (10:01→21:11)
[2022-08-08] MEDS: cefTRIAXone 2 gm/50 mL D5W 2 GM/50 ML BAG IV SCH (11:48)
[2022-08-09 07:20] LABS: Hematocrit 37 % (42-52); Hemoglobin 12.2 g/dL (14.0-18.0); Mean Corpuscular HGB Conc 33 g/dL (31-36); Mean Corpuscular Hemoglobin 28 pg (27-31); Mean Corpuscular Volume 85 fL (80-94); Mean Platelet Volume 8.8 fL (7.4-10.4); Platelet Count 131 10^3/uL (150-450); Red Blood Count 4.33 10^6 /uL (4.18-5.48); Red Cell Distribution Width 16 % (10-15); White Blood Count 6.5 10^3/uL (3.5-10.8)
[2022-08-09 07:34] LABS: Calcium 7.5 mg/dL (8.6-10.3); Creatinine, Serum 0.75 mg/dL (0.67-1.17); Magnesium 1.9 mg/dL (1.9-2.7); Potassium 4.1 mmol/L (3.5-5.0); eGFR CKD-EPI 87.9 (>60)
[2022-08-09 07:53] LABS: ABS Eosinophils 0.1 10^3/ul (0-0.6); ABS Lymphocytes 0.6 10^3/ul (1.0-4.8); ABS Monocytes 0.7 10^3/ul (0-0.8); ABS Neutrophils 5.2 10^3/ul (1.5-7.7); Anisocytosis 1+; Eosinophil % 1.5 %; Lymphocyte % 8.5 %
[2022-08-09] MEDS: Carbidopa/Levodop 25/100 MG TAB PO SCH ×3 (08:08→17:00)
[2022-08-09] MEDS: Heparin 5000 UNITS/ML 1 mL VIAL SUBCUT SCH ×2 (08:09→22:14)
[2022-08-09] MEDS: cefTRIAXone 2 gm/50 mL D5W 2 GM/50 ML BAG IV SCH (11:01)
[2022-08-10 06:27] LABS: Hematocrit 34 % (42-52); Hemoglobin 11.4 g/dL (14.0-18.0); Mean Corpuscular HGB Conc 33 g/dL (31-36); Mean Corpuscular Hemoglobin 28 pg (27-31); Mean Corpuscular Volume 85 fL (80-94); Mean Platelet Volume 8.3 fL (7.4-10.4); Platelet Count 143 10^3/uL (150-450); Red Blood Count 4.03 10^6 /uL (4.18-5.48); Red Cell Distribution Width 16 % (10-15); White Blood Count 7.4 10^3/uL (3.5-10.8)
[2022-08-10 06:49] LABS: Calcium 7.5 mg/dL (8.6-10.3); Creatinine, Serum 0.79 mg/dL (0.67-1.17); Magnesium 1.7 mg/dL (1.9-2.7); eGFR CKD-EPI 86.5 (>60)
[2022-08-10 06:59] LABS: ABS Eosinophils 0.1 10^3/ul (0-0.6); ABS Lymphocytes 0.7 10^3/ul (1.0-4.8); ABS Monocytes 1.5 10^3/ul (0-0.8); ABS Neutrophils 5.1 10^3/ul (1.5-7.7); Eosinophil % 1.1 %; Lymphocyte % 10.1 %; Nucleated Red Blood Cells % 0.3
[2022-08-10] MEDS ORDERED: Magnesium Sulfate IV 3 GM in NS 0.9% 100 ml BAG 100 ML IVPB ONE (08:30)
[2022-08-10] MEDS: Heparin 5000 UNITS/ML 1 mL VIAL SUBCUT SCH ×2 (08:59→21:23)
[2022-08-10] MEDS: Carbidopa/Levodop 25/100 MG TAB PO SCH ×3 (08:59→17:49)
[2022-08-10] MEDS: cefTRIAXone 2 gm/50 mL D5W 2 GM/50 ML BAG IV SCH (11:33)
[2022-08-11] MEDS: Carbidopa/Levodop 25/100 MG TAB PO SCH ×3 (07:44→16:19)
[2022-08-11] MEDS: Heparin 5000 UNITS/ML 1 mL VIAL SUBCUT SCH (07:44)
[2022-08-11] MEDS: cefTRIAXone 2 gm/50 mL D5W 2 GM/50 ML BAG IV SCH (11:48)
[2022-08-11] MEDS: Enoxaparin 40 MG/0.4 ML SYR SUBCUT SCH (23:32)
[2022-08-12] MEDS: Carbidopa/Levodop 25/100 MG TAB PO SCH ×3 (07:31→16:55)
[2022-08-12 17:19] LABS: Rapid COVID-19 Molecular Detected (Undetected)
[2022-08-12] MEDS: Enoxaparin 40 MG/0.4 ML SYR SUBCUT SCH (20:49)
[2022-08-13 06:01] LABS: ABS Basophils 0.1 10^3/ul (0-0.2); ABS Eosinophils 0.1 10^3/ul (0-0.6); ABS Lymphocytes 0.5 10^3/ul (1.0-4.8); ABS Neutrophils 6.3 10^3/ul (1.5-7.7); Eosinophil % 0.7 %; Hematocrit 35 % (42-52); Hemoglobin 11.4 g/dL (14.0-18.0); Lymphocyte % 6.6 %; Mean Corpuscular HGB Conc 33 g/dL (31-36); Mean Corpuscular Hemoglobin 28 pg (27-31); Mean Corpuscular Volume 86 fL (80-94); Mean Platelet Volume 8.4 fL (7.4-10.4); Platelet Count 186 10^3/uL (150-450); Red Blood Count 4.08 10^6 /uL (4.18-5.48); Red Cell Distribution Width 16 % (10-15); White Blood Count 7.9 10^3/uL (3.5-10.8)
[2022-08-13 06:46] LABS: Calcium 7.7 mg/dL (8.6-10.3); Creatinine, Serum 0.76 mg/dL (0.67-1.17); Magnesium 1.9 mg/dL (1.9-2.7); Potassium 4.1 mmol/L (3.5-5.0); eGFR CKD-EPI 87.5 (>60)
[2022-08-13] MEDS: Carbidopa/Levodop 25/100 MG TAB PO SCH ×2 (10:18→12:48)
[2022-08-13 11:33] VITALS: BP 116/64
== END 2022-08-13 13:31 | disposition swing bed (61) | DRG 871 ==
LOC: ED 15:09 → EDHOLD 15:09 → SUATTDRO 08-04 05:25 → OBSVTOIN 08-04 05:28 → ICU 08-04 08:17 → MED 08-06 08:48
PROVIDERS: ADMIT Hospitalist; ATTEND Internal Medicine

== ENCOUNTER 2022-08-13 13:51 | Inpatient (IN) ==
[2022-08-13] MEDS: Carbidopa/Levodop 25/100 MG TAB PO SCH (16:43)
[2022-08-13] MEDS: Enoxaparin 40 MG/0.4 ML SYR SUBCUT SCH (20:07)
[2022-08-14] MEDS: Carbidopa/Levodop 25/100 MG TAB PO SCH ×3 (08:19→17:39)
[2022-08-14] MEDS: Enoxaparin 40 MG/0.4 ML SYR SUBCUT SCH (20:53)
[2022-08-15 03:25] LABS: ABS Eosinophils 0.1 10^3/ul (0-0.6); ABS Lymphocytes 0.5 10^3/ul (1.0-4.8); ABS Monocytes 0.8 10^3/ul (0-0.8); ABS Neutrophils 6.8 10^3/ul (1.5-7.7); Eosinophil % 0.6 %; Hematocrit 33 % (42-52); Hemoglobin 11.1 g/dL (14.0-18.0); Lymphocyte % 5.6 %; Mean Corpuscular HGB Conc 33 g/dL (31-36); Mean Corpuscular Hemoglobin 28 pg (27-31); Mean Corpuscular Volume 85 fL (80-94); Mean Platelet Volume 8.1 fL (7.4-10.4); Platelet Count 246 10^3/uL (150-450); Red Blood Count 3.91 10^6 /uL (4.18-5.48); Red Cell Distribution Width 16 % (10-15); White Blood Count 8.2 10^3/uL (3.5-10.8)
[2022-08-15 04:05] LABS: Albumin 2.7 g/dL (3.2-5.2); Calcium 7.9 mg/dL (8.6-10.3); Creatinine, Serum 0.67 mg/dL (0.67-1.17); Globulin 2.7 g/dL (2-4); Magnesium 1.8 mg/dL (1.9-2.7); Potassium 4.6 mmol/L (3.5-5.0); Total Bilirubin 0.5 mg/dL (0.2-1.0); Total Protein 5.4 g/dL (6.4-8.9); eGFR CKD-EPI 90.9 (>60)
[2022-08-15 06:05] LABS: Urine Appearance Clear; Urine Bilirubin Negative (Negative); Urine Blood Negative (Negative); Urine Color Yellow; Urine Glucose Negative (Negative); Urine Ketones Negative (Negative); Urine Nitrite Negative (Negative); Urine Protein Negative (Negative); Urine Specific Gravity 1.011 (1.002-1.030); Urine Urobilinogen Negative (Negative)
[2022-08-15] MEDS: Carbidopa/Levodop 25/100 MG TAB PO SCH ×3 (07:55→17:15)
[2022-08-15] MEDS: Enoxaparin 40 MG/0.4 ML SYR SUBCUT SCH (21:02)
[2022-08-16] MEDS: Carbidopa/Levodop 25/100 MG TAB PO SCH ×3 (08:47→17:45)
[2022-08-16] MEDS: Enoxaparin 40 MG/0.4 ML SYR SUBCUT SCH (20:38)
[2022-08-17] MEDS: Carbidopa/Levodop 25/100 MG TAB PO SCH ×3 (08:30→16:40)
[2022-08-17] MEDS: Enoxaparin 40 MG/0.4 ML SYR SUBCUT SCH (19:49)
[2022-08-18] MEDS: Carbidopa/Levodop 25/100 MG TAB PO SCH ×3 (08:40→17:30)
[2022-08-18] MEDS: Enoxaparin 40 MG/0.4 ML SYR SUBCUT SCH (20:13)
[2022-08-19] MEDS: Carbidopa/Levodop 25/100 MG TAB PO SCH ×3 (09:14→17:16)
[2022-08-19] MEDS: Enoxaparin 40 MG/0.4 ML SYR SUBCUT SCH (21:52)
[2022-08-20] MEDS: Carbidopa/Levodop 25/100 MG TAB PO SCH ×3 (09:27→17:30)
[2022-08-20] MEDS: Enoxaparin 40 MG/0.4 ML SYR SUBCUT SCH (21:07)
[2022-08-21] MEDS: Carbidopa/Levodop 25/100 MG TAB PO SCH ×3 (08:08→17:21)
[2022-08-21] MEDS: Enoxaparin 40 MG/0.4 ML SYR SUBCUT SCH (21:47)
[2022-08-22] MEDS: Carbidopa/Levodop 25/100 MG TAB PO SCH ×3 (08:54→16:36)
[2022-08-22] MEDS: Enoxaparin 40 MG/0.4 ML SYR SUBCUT SCH (23:08)
[2022-08-23] MEDS: Carbidopa/Levodop 25/100 MG TAB PO SCH ×3 (09:10→17:22)
[2022-08-23 13:03] LABS: Rapid COVID-19 Molecular Undetected (Undetected)
[2022-08-23] MEDS: Enoxaparin 40 MG/0.4 ML SYR SUBCUT SCH (22:16)
[2022-08-24 07:17] VITALS: BP 127/82
[2022-08-24] MEDS: Carbidopa/Levodop 25/100 MG TAB PO SCH (08:03)
== END 2022-08-24 11:30 | DRG 871 ==
LOC: SUATTDRO 13:51 → MED 13:51
PROVIDERS: ADMIT Internal Medicine; ATTEND Internal Medicine

== ENCOUNTER 2022-09-09 16:25 | Inpatient (IN) ==
[2022-09-09] MEDS ORDERED: NS 0.9% 1000 ml BAG 1,000 ML IV ONE (17:37)
[2022-09-09 18:02] LABS: ABS Eosinophils 0.1 10^3/ul (0-0.6); ABS Lymphocytes 0.6 10^3/ul (1.0-4.8); ABS Monocytes 1.5 10^3/ul (0-0.8); ABS Neutrophils 9.6 10^3/ul (1.5-7.7); Eosinophil % 0.6 %; Hematocrit 41 % (42-52); Hemoglobin 12.9 g/dL (14.0-18.0); Mean Corpuscular HGB Conc 31 g/dL (31-36); Mean Corpuscular Hemoglobin 29 pg (27-31); Mean Corpuscular Volume 91 fL (80-94); Mean Platelet Volume 8.2 fL (7.4-10.4); Platelet Count 264 10^3/uL (150-450); Red Blood Count 4.52 10^6 /uL (4.18-5.48); Red Cell Distribution Width 18 % (10-15); White Blood Count 11.8 10^3/uL (3.5-10.8)
[2022-09-09 18:08] LABS: Activated Partial Thrombo Time 31.1 seconds (26.0-38.0); INR 1.12 (0.88-1.18)
[2022-09-09 18:27] LABS: AST 14 U/L (13-39); Albumin 3.4 g/dL (3.2-5.2); Albumin/Globulin Ratio 1.1 (1-3); Alkaline Phosphatase 88 U/L (35-149); Anion Gap 4 mmol/L (2-11); Blood Urea Nitrogen 23 mg/dL (6-24); CO2 Carbon Dioxide 29 mmol/L (22-32); Calcium 8.7 mg/dL (8.6-10.3); Chloride 106 mmol/L (101-111); Cholesterol 141 mg/dL; Creatinine, Serum 0.78 mg/dL (0.67-1.17); Glucose 102 mg/dL (70-100); HDL Cholesterol 38.7 mg/dL; LDL Cholesterol 86 mg/dL; Potassium 4.4 mmol/L (3.5-5.0); Sodium 139 mmol/L (135-145); Total Protein 6.4 g/dL (6.4-8.9); Triglycerides 84 mg/dL; eGFR CKD-EPI 86.8 (>60)
[2022-09-09 18:48] LABS: Urine Appearance Cloudy; Urine Bilirubin Negative (Negative); Urine Blood 1+ (Negative); Urine Color Yellow; Urine Glucose Negative (Negative); Urine Ketones Trace (Negative); Urine Nitrite Negative (Negative); Urine Protein Negative (Negative); Urine Specific Gravity 1.026 (1.002-1.030); Urine Urobilinogen Negative (Negative)
[2022-09-09 18:57] LABS: Urine Bacteria Absent (Absent); Urine Red Blood Cell 3+(>10/hpf) (Absent); Urine Squamous Epithelial Cell Present (Absent); Urine White Blood Cell Trace(0-5/hpf) (Absent)
[2022-09-09] MEDS ORDERED: Iohexol 350 (CONTRAST) 500 ML MDV IV ONE (19:24)
[2022-09-09 20:25] LABS: ALT < 3 U/L (7-52)
[2022-09-09] MEDS: Carbidopa/Levodop 25/100 MG TAB PO SCH (21:16)
[2022-09-09] MEDS: Enoxaparin 40 MG/0.4 ML SYR SUBCUT SCH (22:30)
[2022-09-10 06:15] LABS: Hematocrit 37 % (42-52); Hemoglobin 11.9 g/dL (14.0-18.0); Mean Corpuscular HGB Conc 32 g/dL (31-36); Mean Corpuscular Hemoglobin 29 pg (27-31); Mean Corpuscular Volume 88 fL (80-94); Mean Platelet Volume 8.2 fL (7.4-10.4); Platelet Count 262 10^3/uL (150-450); Red Blood Count 4.17 10^6 /uL (4.18-5.48); Red Cell Distribution Width 17 % (10-15); White Blood Count 9.2 10^3/uL (3.5-10.8)
[2022-09-10 06:33] LABS: Calcium 8.2 mg/dL (8.6-10.3); Creatinine, Serum 0.67 mg/dL (0.67-1.17); Magnesium 1.6 mg/dL (1.9-2.7); Potassium 3.7 mmol/L (3.5-5.0); eGFR CKD-EPI 90.9 (>60)
[2022-09-10] MEDS: Carbidopa/Levodop 25/100 MG TAB PO SCH ×3 (07:57→17:34)
[2022-09-10] MEDS: KCL 20 MEQ/100 ML IVPREMIX 20 MEQ/100 ML BAG IV SCH ×2 (08:02→10:18)
[2022-09-10] MEDS: Enoxaparin 40 MG/0.4 ML SYR SUBCUT SCH (20:18)
[2022-09-11 06:21] LABS: ABS Basophils 0.1 10^3/ul (0-0.2); ABS Eosinophils 0.2 10^3/ul (0-0.6); ABS Lymphocytes 0.5 10^3/ul (1.0-4.8); ABS Monocytes 1.2 10^3/ul (0-0.8); ABS Neutrophils 7.5 10^3/ul (1.5-7.7); Eosinophil % 2.3 %; Hematocrit 38 % (42-52); Hemoglobin 12.6 g/dL (14.0-18.0); Mean Corpuscular HGB Conc 33 g/dL (31-36); Mean Corpuscular Hemoglobin 29 pg (27-31); Mean Corpuscular Volume 89 fL (80-94); Mean Platelet Volume 8.4 fL (7.4-10.4); Platelet Count 249 10^3/uL (150-450); Red Blood Count 4.33 10^6 /uL (4.18-5.48); Red Cell Distribution Width 17 % (10-15); White Blood Count 9.5 10^3/uL (3.5-10.8)
[2022-09-11 06:32] LABS: Calcium 8.4 mg/dL (8.6-10.3); Magnesium 1.6 mg/dL (1.9-2.7)
[2022-09-11 06:37] LABS: Creatinine, Serum 0.7 mg/dL (0.67-1.17); eGFR CKD-EPI 89.7 (>60)
[2022-09-11] MEDS: Carbidopa/Levodop 25/100 MG TAB PO SCH ×3 (07:45→16:57)
[2022-09-11] MEDS ORDERED: Magnesium Sulf 4 GM/100 ML IV 4,000 MG/100 ML BAG IVPB ONE (07:50)
[2022-09-11] MEDS: Enoxaparin 40 MG/0.4 ML SYR SUBCUT SCH (21:26)
[2022-09-12 06:10] LABS: ABS Eosinophils 0.1 10^3/ul (0-0.6); ABS Lymphocytes 0.6 10^3/ul (1.0-4.8); ABS Neutrophils 5.5 10^3/ul (1.5-7.7); Eosinophil % 2.1 %; Hematocrit 38 % (42-52); Hemoglobin 12.6 g/dL (14.0-18.0); Lymphocyte % 7.8 %; Mean Corpuscular HGB Conc 33 g/dL (31-36); Mean Corpuscular Hemoglobin 29 pg (27-31); Mean Corpuscular Volume 88 fL (80-94); Mean Platelet Volume 8.5 fL (7.4-10.4); Platelet Count 270 10^3/uL (150-450); Red Blood Count 4.37 10^6 /uL (4.18-5.48); Red Cell Distribution Width 17 % (10-15); White Blood Count 7.2 10^3/uL (3.5-10.8)
[2022-09-12 06:23] LABS: Calcium 8.5 mg/dL (8.6-10.3); Creatinine, Serum 0.69 mg/dL (0.67-1.17); Magnesium 2.2 mg/dL (1.9-2.7); Potassium 3.9 mmol/L (3.5-5.0); eGFR CKD-EPI 90.1 (>60)
[2022-09-12] MEDS ORDERED: KCL 10 MEQ/50 ML IVPREMIX 10 MEQ/50 ML BAG IV ONE (06:58)
[2022-09-12] MEDS: Carbidopa/Levodop 25/100 MG TAB PO SCH ×3 (08:34→16:44)
[2022-09-12] MEDS: Enoxaparin 40 MG/0.4 ML SYR SUBCUT SCH (19:38)
[2022-09-13 06:25] LABS: ABS Eosinophils 0.2 10^3/ul (0-0.6); ABS Lymphocytes 0.6 10^3/ul (1.0-4.8); ABS Monocytes 0.9 10^3/ul (0-0.8); ABS Neutrophils 4.7 10^3/ul (1.5-7.7); Eosinophil % 2.4 %; Hematocrit 38 % (42-52); Hemoglobin 12.2 g/dL (14.0-18.0); Lymphocyte % 9.3 %; Mean Corpuscular HGB Conc 33 g/dL (31-36); Mean Corpuscular Hemoglobin 29 pg (27-31); Mean Corpuscular Volume 89 fL (80-94); Mean Platelet Volume 8.5 fL (7.4-10.4); Platelet Count 248 10^3/uL (150-450); Red Blood Count 4.24 10^6 /uL (4.18-5.48); Red Cell Distribution Width 17 % (10-15); White Blood Count 6.4 10^3/uL (3.5-10.8)
[2022-09-13 06:40] LABS: Calcium 8.4 mg/dL (8.6-10.3); Creatinine, Serum 0.79 mg/dL (0.67-1.17); Magnesium 1.9 mg/dL (1.9-2.7); Potassium 4.2 mmol/L (3.5-5.0); eGFR CKD-EPI 86.5 (>60)
[2022-09-13] MEDS: Carbidopa/Levodop 25/100 MG TAB PO SCH ×3 (08:15→17:10)
[2022-09-13] MEDS ORDERED: Lactated Ringers 1000 ml BAG 1,000 ML IV ONE (10:53)
[2022-09-13] MEDS: Enoxaparin 40 MG/0.4 ML SYR SUBCUT SCH (20:09)
[2022-09-14 06:07] LABS: ABS Eosinophils 0.2 10^3/ul (0-0.6); ABS Lymphocytes 0.6 10^3/ul (1.0-4.8); ABS Neutrophils 6.6 10^3/ul (1.5-7.7); Eosinophil % 1.9 %; Hematocrit 36 % (42-52); Hemoglobin 11.7 g/dL (14.0-18.0); Lymphocyte % 7.5 %; Mean Corpuscular HGB Conc 33 g/dL (31-36); Mean Corpuscular Hemoglobin 29 pg (27-31); Mean Corpuscular Volume 88 fL (80-94); Mean Platelet Volume 7.9 fL (7.4-10.4); Platelet Count 254 10^3/uL (150-450); Red Blood Count 4.08 10^6 /uL (4.18-5.48); Red Cell Distribution Width 17 % (10-15); White Blood Count 8.4 10^3/uL (3.5-10.8)
[2022-09-14 06:46] LABS: Calcium 8.5 mg/dL (8.6-10.3); Creatinine, Serum 0.72 mg/dL (0.67-1.17); Magnesium 1.7 mg/dL (1.9-2.7); Potassium 4.1 mmol/L (3.5-5.0)
[2022-09-14] MEDS ORDERED: Magnesium Sulfate 2 gm BAG 2 GM/50 ML BAG IVPB ONE (07:24)
[2022-09-14] MEDS: Carbidopa/Levodop 25/100 MG TAB PO SCH ×2 (08:19→12:38)
[2022-09-14 12:00] LABS: Rapid COVID-19 Molecular Undetected (Undetected)
[2022-09-14 14:21] VITALS: BP 120/52
== END 2022-09-14 14:25 | DRG 65 ==
LOC: ED 16:25 → EDHOLD 16:25 → SUATTDRO 22:36 → MEDTELE 23:15
PROVIDERS: ADMIT Surgery; ATTEND Hospitalist